=== PATIENT | male | born 1985 | race Caucasian/White ===

== ENCOUNTER 2017-05-31 21:02 | Emergency (ER) | payer OTHER ==
[~2017-05-31] VITALS: Ht 172.7 cm; Wt 90.7 kg
[2017-05-31] MEDS ORDERED: NOHOMEMEDICATIONS (21:10)
[2017-05-31 22:56] VITALS: BP 144/93
--- NOTE | 2017-06-01 16:44 | EKG ---
[place] [address] ELECTROCARDIOGRAM REPORT Name: ARTHUR ABREU [id number] Admission: 05/31/17 Attend Phys: Discharge: 05/31/17 Date of : 89 Report #: [id number] THIS REPORT FOR: //name// [facility] ED Test Date: 2017-05-31 Test Time: 21:16:58 Pat Name: ARTHUR ABREU Department: Room: Gender: M [employer]: 89 : 1985 Requested By: Diana Chappell Order Number: [id number] MD: Alin Aragon Measurements Intervals [place] Rate: 116 P: 59 MD: 165 QRS: 46 QRSD: 116 T: -17 QT: 377 QTc: 524 Interpretive Statements Sinus tachycardia Nonspecific intraventricular conduction delay Nonspecific T abnormalities, anterior leads No previous ECG available for comparison Electronically Signed On 06-01-2017 16:44:25 [employer] by Alin Aragon [email or web address] <ELECTRONICALLY SIGNED> By: Alin Aragon MD, [facility] 06/01/17 1644 [id number] 15 Alin Aragon MD, FACC /EPI
== END 2017-05-31 22:57 | disposition home or self-care (01) ==
LOC: M.ERS 21:02
DX: R06.00 Dyspnea, unspecified (principal)